=== PATIENT | female | born 1970 | race Caucasian/White ===

== ENCOUNTER 2016-09-03 05:48 | Outpatient (CLI) | payer OTHER ==
[~2016-09-03] VITALS: Ht 167.6 cm; Wt 83.9 kg
[2016-09-03] MEDS ORDERED: ATOR80TA76 PO (14:09)
[2016-09-03] MEDS ORDERED: LISI-552 PO (14:09)
== END 2016-09-03 14:10 ==
LOC: PREOP 05:48
PROVIDERS: ATTEND Surgery Pediatric Surgery
DX: Z01.818 Encounter for other preprocedural examination (principal); K92.1 Melena

== ENCOUNTER 2016-09-05 07:33 | Day surgery (SDC) | payer OTHER ==
[~2016-09-05] VITALS: Ht 157.5 cm; Wt 83.9 kg
[~2016-09-05 07:33] MED LIST: ATOR80TA76 PO; LISI-552 PO
[2016-09-05 07:40] VITALS: BP 126/78
[2016-09-05] MEDS ORDERED: NS IV 500 ML 500 ML IV PRN (07:43)
[2016-09-05] MEDS ORDERED: NALOXONE 0.4 MG/ML 1 ML (NARCAN) VIAL IVP PRN (07:45)
[2016-09-05] MEDS ORDERED: FLUMAZENIL (ROMAZICON) 0.1 MG/ML 5 ML VIAL INJ PRN (07:45)
[2016-09-05] MEDS ORDERED: NS IV 500 ML 500 ML ONE (07:46)
[2016-09-05] MEDS ORDERED: LIDOCAINE JELLY 2% (XYLOCAINE) 5 ML TUBE ONE (10:03)
[2016-09-05] MEDS ORDERED: MIDAZOLAM 2 MG/2 ML (VERSED) VIAL ONE ×6 (10:04→10:27)
[2016-09-05] MEDS ORDERED: fentaNYL INJECTION 100 MCG/2 ML AMP ONE ×2 (10:04)
--- NOTE | 2016-09-05 10:14 | Conscious Sedation/ASA ---
Conscious Sedation Pre-Proced Time Reviewed: 09:30 ASA Class: 2 Airway Mallampati Classification: ([place] appropriate class) I. II. III, IV Lungs Heart ASA score ASA 1: a normal healthy patient ASA 2: a patient with a mild systemic disease (mid diabetes, controlled hypertension, obesity ASA 3: a patient with a severe systemic disease that limits activity (angina , COPD, prior Myocardial infarction) ASA 4: a patient with an incapacitating disease that is a constant threat to life (CHF, renal failure) ASA 5: a moribund patient not expected to survive 24 hrs. (ruptured aneurysm) ASA 6: a declared brain patient whose organs are being harvested. For emergent operations, add the letter E after the classification Grade 2 Sedation Plan: Analgesia, Amnesia, Plan communicated to team members, Discussed options with patient/fam, Discussed risks with patient/fam Note The patient is an appropriate candidate to undergo the planned procedure, sedation, and anesthesia. The patient immediately re-assessed prior to indication. SAMUEL SAL MD Sep 05, 2016 10:14 am
[2016-09-05] MEDS ORDERED: ONDANSETRON 4 MG/2 ML (SDV) Z0FRAN IV PRN (10:15)
[2016-09-05] MEDS ORDERED: ACETAMINOPHEN 325 MG TABLET/CAPLET (TYLENOL) PO PRN (10:15)
[2016-09-05] MEDS ORDERED: morphine INJ 10 MG/ML 1ML (SYR OR VIAL) IV PRN (10:15)
[2016-09-05] MEDS ORDERED: HYDROcodone/APAP 5 MG/325 MG (LORTAB) TAB PO PRN (10:15)
--- NOTE | 2016-09-05 10:15 | Progress Note-Pre Operative ---
Pre-Operative Progress Note H&P Reviewed The H&P was reviewed, patient examined and no changes noted. Date Seen by Provider: Sep 05, 2016 Time Seen by Provider: 09:30 Date H&P Reviewed: Sep 05, 2016 Time H&P Reviewed: 09:30 Pre-Operative Diagnosis: family hx colon cancer SAMUEL SAL MD Sep 05, 2016 10:15 am
[2016-09-05] MEDS: MIDAZOLAM 2 MG/2 ML (VERSED) VIAL IVP PRN ×6 (10:16→10:31)
[2016-09-05] MEDS: fentaNYL INJECTION 100 MCG/2 ML AMP IVP PRN ×4 (10:17→10:30)
--- NOTE | 2016-09-05 10:53 | Progress Note-Post Operative ---
Post-Operative Progess Note Surgeon (s)/Mining Professionals (s) Surgeon SAMUEL SAL MD Mining Professionals: none Pre-Operative Diagnosis family hx colon cancer Post-Operative Diagnosis chronic stage 3 ext and int hemorrhoids. Procedure & Operative Findings Date of Procedure 09/05/16 Procedure Performed/Findings Colonoscopy Anesthesia Type CS Estimated Blood Loss Estimated blood loss (mL): minimal Specimens/Packing Specimens Removed none SAMUEL SAL MD Sep 05, 2016 10:53 am
--- NOTE | 2016-09-05 10:54 | Discharge Inst-Surgical ---
D/C Lap Instructions-JONELLE Follow Up 5 years Activity as tolerated High Fiber Diet 25g or more per day Avoid Alcohol, Caffeine, Spicy [place] and Acid foods. Drink 64 fluid oz or more of fluids per day. Symptoms to Report: Fever over 101 degree F, Nausea/Vomiting If any problems/questions: Contact your physician or go to Emergency Room SAMUEL SAL MD Sep 05, 2016 10:54 am
[2016-09-05 11:05] VITALS: BP 108/70
[2016-09-05] MEDS ORDERED: LIDOCAINE JELLY 2% (XYLOCAINE) 5 ML TUBE TOP ONE (11:15)
[2016-09-05 11:35] VITALS: BP 110/73
[2016-09-05 12:27] VITALS: BP 110/73
--- NOTE | 2016-09-05 13:58 | OPERATIVE REPORT ---
DATE OF SERVICE: 09/05/2016 ATTENDING WATER PUMP SERVICER: MAC Ramirez PREOPERATIVE DIAGNOSIS: Family history of colon cancer. POSTOPERATIVE DIAGNOSIS: Chronic stage III external and internal hemorrhoids. The remainder of the rectum and colon were normal. PROCEDURE: Colonoscopy. SURGEON: Samuel Sal MD ANESTHESIA: Conscious sedation. ESTIMATED BLOOD LOSS: Minimal. FINDINGS: Chronic stage III external and internal hemorrhoids, not actively edematous, nor inflamed and no bleeding. The remainder of the rectum and colon were normal. There were no polyps or any neoplasms identified. DISPOSITION: The patient tolerated the procedure well. INDICATIONS: The patient is a 46-year-old female with an episode of rectal bleeding which was a small amount and red color in nature. She reports occasional episodes of lower crampy abdominal pain as well. She does state having a bowel movement on a daily basis. She has not had a colonoscopy up to this point in her life. She does have a family history of colon cancer with her father having the disease. DESCRIPTION OF PROCEDURE: The patient was brought to the endoscopy suite, laid in the left lateral decubitus position. After adequate IV pain and sedating medications and conscious sedation anesthesia, a digital rectal examination was performed. Chronic stage III external and internal hemorrhoids were identified, which were not actively edematous, nor inflamed and no bleeding. Normal sphincter tone was felt and there were no palpable masses. The endoscope was then intubated into the anus and rectum and gently insufflated. The endoscope was then advanced to the valves of [place]ar[place] in the rectum with no polyps or any neoplasms identified. There were also no mucosal inflammatory changes to indicate any active colitis. The endoscope was then advanced to the sigmoid colon where no diverticulosis identified. We then proceeded to the remainder of the descending, transverse and ascending colon to the cecum. These segments were normal. The endoscope was then slowly withdrawn when taking second look and suctioning residual air with no additional findings. The patient tolerated the procedure well. Most likely etiology of the rectal bleeding was due to internal hemorrhoidal irritation. My recommendation is that she proceed with a high fiber diet with at least 25 to 30 grams of fiber per day, as well as at least 64 fluid ounces of water to promote soft stools on a daily basis. We will also recommend followup colonoscopies every 5 years due to her first-degree family history of colon cancer. Job ID: [id number] DocumentID: [id number] Dictated Date: 09/05/2016 10:48:44 Hide Inspector And Sorter Date: 09/05/2016 12:28:18 Dictated By: SAMUEL SAL MD
== END 2016-09-05 12:20 | disposition home or self-care (01) ==
LOC: ENDO 07:33
PROVIDERS: ATTEND Surgery Pediatric Surgery
DX: K64.2 Third degree hemorrhoids (principal); Z80.0 Family history of malignant neoplasm of digestive organs; K92.1 Melena; I10 Essential (primary) hypertension; E78.5 Hyperlipidemia, unspecified; Z79.899 Other long term (current) drug therapy

== ENCOUNTER 2019-02-08 11:00 | Emergency (ER) | payer BC, OTHER ==
[~2019-02-08] VITALS: Ht 160 cm; Wt 78.0 kg
--- NOTE | 2019-02-08 11:11 | ED Chest Pain ---
General Stated Complaint: CHEST PAIN Source: patient Exam Limitations: no limitations History of Present Illness Date Seen by Provider: Feb 08, 2019 Time Seen by Provider: 11:09 Initial Comments To ER per private vehicle from home with reports of chest pain upon awakening this morning. She has recently had a cold and been coughing quite a bit. Coughing would make the pain worse. Today she had some tightness in her central chest that seems to radiate down to the right lower chest laterally and around to her back. No fever no chills she is always short of breath no worse than usual. Deep breathing does worsen the pain. She is a nonsmoker, she is diabetic, she does have hypertension, she does have high cholesterol. The diabetes hyperte nsion and cholesterol all are treated with medication and she is compliant with that regimen. No personal history of coronary disease. Timing/Duration: changing over time Severity/Quality: moderate Location: central Radiation: no radiation Activities at Onset: none Prior CP/Workup: no prior chest pain ASA po REGIONAL LOSS PREVENTION MANAGER: No NTG SL REGIONAL LOSS PREVENTION MANAGER: No Associated Symptoms: shortness of breath Allergies and Home Medications Allergies Coded Allergies: No Known Drug Allergies (Unverified , 09/03/16) Home Medications Atorvastatin Calcium 80 Mg Tablet, 80 MG PO HS, (Reported) Lisinopril 20 Mg Tablet, 20 MG PO DAILY, (Reported) Patient Home Medication List Home Medication List Reviewed: Yes Review of Systems Review of Systems Constitutional: see HPI EENTM: No Symptoms Reported Respiratory: No Symptoms Reported Cardiovascular: No Symptoms Reported Gastrointestinal: No Symptoms Reported Genitourinary: No Symptoms Reported Musculoskeletal: no symptoms reported Skin: no symptoms reported Psychiatric/Neurological: No Symptoms Reported Endocrine: No Symptoms Reported Hematologic/Lymphatic: No Symptoms Reported Past Ezldvku-Eggcjq-Kmszxu Hx Patient Social History Recent Foreign Travel: No Contact w/Someone Who Travel: No Recent Hopitalizations: No Seasonal Allergies Seasonal Allergies: No Past Medical History Gallbladder, Hysterectomy High Cholesterol, Hypertension MARKET DEVELOPMENT MANAGER History: Hysterectomy Physical Exam Vital Signs Vital Signs - First Documented 02/08/19 11:00 Temp 36.8 Pulse 83 Resp 18 B/P (MAP) 142/69 (93) Pulse Ox 100 O2 Delivery Room Air Capillary Refill : Height, Weight, BMI Height: 5'2.00" Weight: 185lbs. 0.0oz. 83.032376bj; 33.8 BMI Method: General Appearance: No Apparent Distress, WD/WN HEENT: PERRL/EOMI, TMs Normal Neck: Full Range of Motion, Normal Inspection Respiratory: Chest Non Tender, Lungs Clear, Normal Breath Sounds, No Accessory Muscle Use, No Respiratory Distress Cardiovascular: Regular Rate, Rhythm, Normal Peripheral Pulses Gastrointestinal: Non Tender, Soft Extremity: Normal Capillary Refill, Normal Inspection Neurologic/Psychiatric: Alert, Oriented x3 Skin: Normal Color, Warm/Dry Progress/Results/Core Measures Results/Orders Lab Results Laboratory Tests Test 02/08/19 11:10 02/08/19 13:17 Range/Units White Blood Count 8.3 4.3-11.0 10^3/uL Red Blood Count 4.72 4.35-5.85 10^6/uL Hemoglobin 13.3 11.5-16.0 G/DL Hematocrit 39 35-52 % Mean Corpuscular Volume 83 80-99 FL Mean Corpuscular Hemoglobin 28 25-34 PG Mean Corpuscular Hemoglobin Concent 34 32-36 G/DL Red Cell Distribution Width 13.1 10.0-14.5 % Platelet Count 231 130-400 10^3/uL Mean Platelet Volume 11.0 H 7.4-10.4 FL Neutrophils (%) (Auto) 64 42-75 % Lymphocytes (%) (Auto) 23 12-44 % Monocytes (%) (Auto) 11 0-12 % Eosinophils (%) (Auto) 1 0-10 % Basophils (%) (Auto) 0 0-10 % Neutrophils # (Auto) 5.3 1.8-7.8 X 10^3 Lymphocytes # (Auto) 1.9 1.0-4.0 X 10^3 Monocytes # (Auto) 0.9 0.0-1.0 X 10^3 Eosinophils # (Auto) 0.1 0.0-0.3 10^3/uL Basophils # (Auto) 0.0 0.0-0.1 10^3/uL Prothrombin Time 13.2 12.2-14.7 SEC INR Comment 1.0 0.8-1.4 Activated Partial Thromboplast Time 24 24-35 SEC D-Dimer 0.55 H 0.00-0.49 UG/ML Sodium Level 140 135-145 MMOL/L Potassium Level 4.1 3.6-5.0 MMOL/L Chloride Level 106 98-107 MMOL/L Carbon Dioxide Level 20 L 21-32 MMOL/L Anion Gap 14 5-14 MMOL/L Blood Urea Nitrogen 13 7-18 MG/DL Creatinine 0.74 0.60-1.30 MG/DL Estimat Glomerular Filtration Rate > 60 BUN/Creatinine Ratio 18 Glucose Level 90 70-105 MG/DL Calcium Level 9.8 8.5-10.1 MG/DL Corrected Calcium 8.5-10.1 MG/DL Magnesium Level 2.1 1.6-2.4 MG/DL Total Bilirubin 0.7 0.1-1.0 MG/DL Aspartate Amino Transf (AST/SGOT) 21 5-34 U/L Alanine Aminotransferase (ALT/SGPT) 23 0-55 U/L Alkaline Phosphatase 118 40-136 U/L Myoglobin 33.0 10.0-92.0 NG/ML Troponin I < 0.028 < 0.028 <0.028 NG/ML B-Type Natriuretic Peptide 13.5 <100.0 PG/ML Total Protein 8.3 H 6.4-8.2 GM/DL Albumin 4.9 H 3.2-4.5 GM/DL Lipase 67 8-78 U/L My Orders Orders - ARTHUR GOSS APRN Cbc With Automated Diff (02/08/19 11:05) Magnesium (02/08/19 11:05) Chest 1 View, Ap/Pa Only (02/08/19 11:05) Ekg Tracing (02/08/19 11:05) Cardiac Profile 1 (02/08/19 11:05) Comprehensive Metabolic Panel (02/08/19 11:05) Myoglobin Serum (02/08/19 11:05) Protime With Inr (02/08/19 11:05) Partial Thromboplastin Time (02/08/19 11:05) O2 (02/08/19 11:05) Monitor-Rhythm Ecg Trace Only (02/08/19 11:05) Lipid Panel (02/09/19 06:00) Ed Iv/Invasive Line Start (02/08/19 11:05) Lipase (02/08/19 11:05) BNP (02/08/19 11:05) Fibrin Degradation Products (02/08/19 11:05) Aspirin Chewable Tablet (Baby Aspirin Ch (02/08/19 11:15) Ketorolac Injection (Toradol Injection) (02/08/19 11:15) Albuterol/Ipra Inhalation Soln (Duoneb I (02/08/19 11:15) Svn Small Volume Nebulizer (02/08/19 11:05) Ct Angio Chest W (02/08/19 12:02) Iohexol Injection (Omnipaque 350 Mg/Ml 1 (02/08/19 12:15) Received Contrast (Hold Metformin- Contr (02/08/19 12:15) Sodium Chloride Flush (Catheter Flush Sy (02/08/19 12:15) Ns (Ivpb) (Sodium Chloride 0.9% Ivpb Bag (02/08/19 12:15) Troponin I (02/08/19 13:10) Medications Given in ED Current Medications Medications Dose Ordered Sig/Lorena Route Start Time Stop Time Status Last Admin Dose Admin Albuterol/ Ipratropium 3 ml ONCE ONCE INH 02/08/19 11:15 02/08/19 11:16 DC 02/08/19 11:35 3 ML Aspirin 324 mg ONCE ONCE PO 02/08/19 11:15 02/08/19 11:16 DC 02/08/19 11:23 324 MG Iohexol 100 ml ONCE ONCE IV 02/08/19 12:15 02/08/19 12:16 DC 02/08/19 12:53 69 ML Ketorolac Tromethamine 15 mg ONCE ONCE IVP 02/08/19 11:15 02/08/19 11:16 DC 02/08/19 11:23 15 MG Sodium Chloride 10 ml NEEDED PRN IV 02/08/19 12:15 02/08/19 12:54 10 ML Sodium Chloride 100 ml ONCE ONCE IV 02/08/19 12:15 02/08/19 12:16 DC 02/08/19 12:54 80 ML Vital Signs/I&O 02/08/19 02/08/19 02/08/19 11:00 11:00 11:36 Temp 36.8 Pulse 83 Resp 18 B/P (MAP) 142/69 (93) Pulse Ox 100 99 O2 Delivery Room Air Room Air Departure Communication (Admissions) NAME: CANDACE ALFONSO MED REC#: [id number] PT STATUS: REG ER : 1970 PHYSICIAN: ARTHUR GOSS APRN ADMIT DATE: 02/08/19/ER Draft POSDate of Exam:02/08/19 CT ANGIO CHEST W PROCEDURE: CT angiography of the chest with contrast. TECHNIQUE: Multiple contiguous axial images were obtained through the chest after uneventful bolus administration of intravenous contrast. 3D reconstructed CTA MIP acquisitions were also performed. Auto Exposure Controls were utilized during the CT exam to meet ALARA standards for radiation dose reduction. INDICATION: Chest pain. COMPARISON: There are no prior CTA chest examinations available for comparison. FINDINGS: The plain film examination of the chest performed earlier today at 11:35 a.m. failed to show any sign of an acute abnormality. On this study, there is no defect within the pulmonary arteries to indicate a pulmonary embolus. The aorta is not abnormally dilated. There is no sign of a dissection. The heart size is within normal limits. Coronary artery calcifications are noted. There is an area of increased density in the right infrahilar region. This does suggest pneumonia/atelectasis. This abnormal density does extend towards the hilum itself. This appearance is somewhat atypical. It would be unlikely that this abnormal parenchymal abnormality is neoplastic in nature. Even so, that possibility should still be considered. A short-term (4-6 week) follow-up CT chest exam would be recommended for further evaluation. The lungs are otherwise generally clear. There is no evidence for failure, pneumonia or for significant pleural effusion. There is no mediastinal or hilar adenopathy. The thyroid gland is not well visualized due to streak artifact. There is a suggestion of a 9 mm nodule in the left lobe of the thyroid. I would recommend ultrasound to be performed for further study. The sections through the upper abdomen fail to show any evidence for an acute abnormality. There is no obvious breast mass. The bone windows show no sign of a fracture or of a destructive lesion. IMPRESSION: 1. There is no evidence for pulmonary embolus or for dissection. 2. The abnormal parenchymal density in the right infrahilar region is more likely due to pneumonia/atelectasis than to neoplasm. Recommendations as above. Dictated on workstation # [id number] Dict: 02/08/19 1257 Trans: 02/08/19 1312 [facility] [id number] Interpreted by: ANGELINA TERRELL MD Electronically signed by: Impression Primary Impression: Chest pain Qualified Codes: R07.1 - Chest pain on breathing Additional Impression: Pneumonia Qualified Codes: J18.9 - Pneumonia, unspecified organism Disposition: 01 HOME, SELF-CARE Condition: Stable Departure-Patient Inst. Decision time for Depature: 13:53 Referrals: MERARI ATKINSON DO (PCP) Primary Care Physician THOR MOSS (Family) Primary Care Physician Patient Instructions: Chest Pain That Is Not Caused by the Heart (DC), Pneumonia, Adult (DC) Add. Discharge Instructions: 1. Steroids and antibiotics as directed 2. Return to ER for any concerns 3. Follow-up with your doctor next week Scripts Amoxicillin/Potassium Clav (Augmentin 875-125 Tablet) 1 Each Tablet 1 EACH PO BID, #14 TAB 0 Refills Prov: ARTHUR GOSS APRN 02/08/19 Prednisone (Prednisone) 20 Mg Tab 40 MG PO DAILY, #6 TAB 0 Refills Prov: ARTHUR GOSS APRN 02/08/19 ARTHUR GOSS APRN Feb 08, 2019 11:10 POS
[2019-02-08] MEDS ORDERED: ASPIRIN 81 MG CHEW (CHILDREN'S ASA) PO ONE (11:15)
[2019-02-08] MEDS ORDERED: RT-ALBUTEROL/IPRATROPIUM 3 ML (DUONEB) VIAL INH ONE (11:15)
[2019-02-08] MEDS ORDERED: KETOROLAC 30 MG/ML VIAL IVP ONE (11:15)
[2019-02-08 11:23] LABS: BASOPHILS % (AUTO) 0 % (0-10); EOSINOPHILS # (AUTO) 0.1 10^3/uL (0.0-0.3); EOSINOPHILS % (AUTO) 1 % (0-10); HEMATOCRIT 39 % (35-52); HEMOGLOBIN 13.3 G/DL (11.5-16.0); LYMPHOCYTES # (AUTO) 1.9 X 10^3 (1.0-4.0); LYMPHOCYTES % (AUTO) 23 % (12-44); MEAN CORPUSCULAR HEMOGLOBIN 28 PG (25-34); MEAN CORPUSCULAR HGB CONC 34 G/DL (32-36); MEAN CORPUSCULAR VOLUME 83 FL (80-99); MONOCYTES # (AUTO) 0.9 X 10^3 (0.0-1.0); MONOCYTES % (AUTO) 11 % (0-12); NEUTROPHILS # (AUTO) 5.3 X 10^3 (1.8-7.8); NEUTROPHILS % (AUTO) 64 % (42-75); PLATELET COUNT 231 10^3/uL (130-400); RED CELL DISTRIBUTION WIDTH 13.1 % (10.0-14.5); WHITE BLOOD COUNT 8.3 10^3/uL (4.3-11.0)
[2019-02-08 11:40] LABS: PROTHROMBIN TIME PATIENT 13.2 SEC (12.2-14.7)
--- NOTE | 2019-02-08 11:41 | Diagnostic Imaging Report ---
INDICATION: Chest pain since yesterday. TECHNIQUE: Single view chest 11:35 AM. CORRELATION STUDY: None FINDINGS: The heart size, mediastinal configuration and pulmonary vascularity are within normal limits. The lungs are clear with no consolidating infiltrate. There is no significant effusion or pneumothorax. IMPRESSION: 1. Negative for acute abnormality of the chest. Dictated by: Dictated on workstation # [id number]
[2019-02-08 11:42] LABS: ALANINE AMINOTRANSFERASE 23 U/L (0-55); ALBUMIN 4.9 GM/DL (3.2-4.5); ALKALINE PHOSPHATASE 118 U/L (40-136); BILIRUBIN,TOTAL 0.7 MG/DL (0.1-1.0); BUN/CREATININE RATIO 18; CALCIUM 9.8 MG/DL (8.5-10.1); CARBON DIOXIDE 20 MMOL/L (21-32); CHLORIDE 106 MMOL/L (98-107); CREATININE SERUM 0.74 MG/DL (0.60-1.30); GFR ESTIMATED > 60; GLUCOSE 90 MG/DL (70-105); LIPASE 67 U/L (8-78); MAGNESIUM 2.1 MG/DL (1.6-2.4); POTASSIUM 4.1 MMOL/L (3.6-5.0); SODIUM 140 MMOL/L (135-145); TOTAL PROTEIN 8.3 GM/DL (6.4-8.2)
[2019-02-08] MEDS ORDERED: IOHEXOL 350 MG/ML 100 ML (OMNIPAQUE 350) VIAL IV ONE (12:15)
[2019-02-08] MEDS ORDERED: CATHETER FLUSH 10 ML SYR IV PRN (12:15)
[2019-02-08] MEDS ORDERED: HOLD METFORMIN - RECEIVED CONTRAST 20 ML VIAL IV SCH (12:15)
[2019-02-08] MEDS ORDERED: NS 100 ML (IVPB) BAG IV ONE (12:15)
--- NOTE | 2019-02-08 13:14 | Diagnostic Imaging Report ---
PROCEDURE: CT angiography of the chest with contrast. TECHNIQUE: Multiple contiguous axial images were obtained through the chest after uneventful bolus administration of intravenous contrast. 3D reconstructed CTA MIP acquisitions were also performed. Auto Exposure Controls were utilized during the CT exam to meet ALARA standards for radiation dose reduction. INDICATION: Chest pain. COMPARISON: There are no prior CTA chest examinations available for comparison. FINDINGS: The plain film examination of the chest performed earlier today at 11:35 a.m. failed to show any sign of an acute abnormality. On this study, there is no defect within the pulmonary arteries to indicate a pulmonary embolus. The aorta is not abnormally dilated. There is no sign of a dissection. The heart size is within normal limits. Coronary artery calcifications are noted. There is an area of increased density in the right infrahilar region. This does suggest pneumonia/atelectasis. This abnormal density does extend towards the hilum itself. This appearance is somewhat atypical. It would be unlikely that this abnormal parenchymal abnormality is neoplastic in nature. Even so, that possibility should still be considered. A short-term (4-6 week) follow-up CT chest exam would be recommended for further evaluation. The lungs are otherwise generally clear. There is no evidence for failure, pneumonia or for significant pleural effusion. There is no mediastinal or hilar adenopathy. The thyroid gland is not well visualized due to streak artifact. There is a suggestion of a 9 mm nodule in the left lobe of the thyroid. I would recommend ultrasound to be performed for further study. The sections through the upper abdomen fail to show any evidence for an acute abnormality. There is no obvious breast mass. The bone windows show no sign of a fracture or of a destructive lesion. IMPRESSION: 1. There is no evidence for pulmonary embolus or for dissection. 2. The abnormal parenchymal density in the right infrahilar region is more likely due to pneumonia/atelectasis than to neoplasm. Recommendations as above. Dictated by: Dictated on workstation # [id number]
--- NOTE | 2019-02-08 13:24 | NUR ---
2ND TROPONIN SENT TO LAB
[2019-02-08] MEDS ORDERED: PRD20T PO (14:09)
[2019-02-08] MEDS ORDERED: AMOX-358 PO (14:09)
[2019-02-08 14:23] VITALS: BP 121/73
== END 2019-02-08 14:24 | disposition home or self-care (01) ==
LOC: EDUNIT# 11:01 → ER 11:02
DX: J18.9 Pneumonia, unspecified organism (principal); E11.9 Type 2 diabetes mellitus without complications; I10 Essential (primary) hypertension; E78.00 Pure hypercholesterolemia, unspecified; Z90.710 Acquired absence of both cervix and uterus
CPT/HCPCS: 36415; 71045; 71275; 80053; 83690; 83735; 83874; 83880; 84484; 85025; 85379; 85610; 85730; 93005; 93041; 94640